=== PATIENT | male | born 1965 | race Caucasian/White ===

== ENCOUNTER 2021-07-18 17:15 | Emergency (ER) | payer OTHER ==
[~2021-07-18] VITALS: Ht 177.8 cm; Wt 90.9 kg
[2021-07-18] MEDS ORDERED: FLUT1BLS IH (17:38)
[2021-07-18] MEDS ORDERED: ALBU83IN INH (17:38)
[2021-07-18] MEDS ORDERED: ACETAMINOPHEN 500 MG TAB PO ONE (18:55)
[2021-07-18 21:16] VITALS: BP 135/90
[2021-07-18] MEDS ORDERED: NORCO 5/325MG TABLET (BULK FOR ED) PO ONE (21:25)
== END 2021-07-18 22:03 | disposition home or self-care (01) ==
LOC: M ED 17:15
DX: S82.001A Unspecified fracture of right patella, initial encounter for closed fracture (principal); W01.0XXA Fall on same level from slipping, tripping and stumbling without subsequent striking against object, initial encounter; Y92.89 Other specified places as the place of occurrence of the external cause; Y93.9 Activity, unspecified; Y99.0 Civilian activity done for income or pay